=== PATIENT | male | born 1955 | race Two or more races ===

== ENCOUNTER 2021-04-14 06:29 | Emergency (ER) | payer OTHER ==
[~2021-04-14] VITALS: Ht 180.3 cm; Wt 87.1 kg
[2021-04-14] MEDS ORDERED: NORVASC10 MG (07:25)
== END 2021-04-14 14:51 | disposition home or self-care (01) ==
LOC: ER 06:29
DX: I16.1 Hypertensive emergency (principal); I10 Essential (primary) hypertension; K80.80 Other cholelithiasis without obstruction; K76.0 Fatty (change of) liver, not elsewhere classified